=== PATIENT | female | born 1960 | race Caucasian/White ===

== ENCOUNTER 2022-11-04 17:06 | Emergency (ER) | payer OTHER ==
[~2022-11-04] VITALS: Ht 175.3 cm; Wt 108.9 kg
[2022-11-04 17:20] VITALS: BP_SYST 173
--- NOTE | 2022-11-04 17:23 | NUR ---
Patient to ER bed 02 to gown for evaluation. Side rails up. .
--- NOTE | 2022-11-04 17:32 | NUR ---
pt bib self with c/o of left shoulder pain that started thursday after being at a [employer] and over extending left shoulder. PT HAS AN APPOINTMENT WITH HER ORTHOPEDIC MD pt states 8 out of 10 pain and HAS TAKEN MOTRIN, TYLENOL, AND ALLEVE FOR THE PAIN AND STILL CAN NOT SLEEP DUE TO PAIN. PT HAS A HISTORY OF HYPERTENSION AND ANXIETY. PT DENIES SOB, N/V/D, URINARY OR BOWEL ISSUES. AOX4 PT IN BED 2 ON THE MONITOR.
--- NOTE | 2022-11-04 17:46 | NUR ---
ER Dr. LOCKE at bedside examining patient.
--- NOTE | 2022-11-04 17:52 | NUR ---
X-RAY AT BEDSIDE WITH PT.
[2022-11-04] MEDS ORDERED: KETOROLAC TROMETHAMINE 30 MG VIAL IM ONE (18:30)
[2022-11-04] MEDS ORDERED: LIDO1ADH77 TP (18:31)
[2022-11-04] MEDS ORDERED: NAPR-690 PO (18:31)
--- NOTE | 2022-11-04 18:32 | NUR ---
PT COMPLAIN OF 10/10 PAIN MD MADE AWARE TORADOL ORDERED AND GIVEN. PT TOLERATING WELL.
--- NOTE | 2022-11-04 18:49 | NUR ---
Patient given written and verbal discharge instructions and verbalizes understanding. ER MD discussed with patient the results and treatment provided. Patient in stable condition. ID arm band removed. Rx of Lidocaine and Naproxen given. Patient educated on pain management and to follow up with PMD. Pain Scale 3/10 Opportunity for questions provided and answered. Medication side effect fact sheet provided.
[2022-11-04 18:50] VITALS: BP_SYST 157
== END 2022-11-04 18:50 | disposition home or self-care (01) ==
LOC: SED 17:06
DX: S46.912A Strain of unspecified muscle, fascia and tendon at shoulder and upper arm level, left arm, initial encounter (principal); M75.22 Bicipital tendinitis, left shoulder; I10 Essential (primary) hypertension; Z79.899 Other long term (current) drug therapy; X58.XXXA Exposure to other specified factors, initial encounter; Y93.89 Activity, other specified; Y92.89 Other specified places as the place of occurrence of the external cause; Y99.8 Other external cause status
CPT/HCPCS: 99283; 73030; 96372; J1885